=== PATIENT | male | born 1955 | race Caucasian/White ===

== ENCOUNTER 2018-08-22 17:17 | Inpatient (IN) | payer OTHER ==
[2018-08-22] MEDS ORDERED: SODIUM CHLORIDE 0.9% FLUSH 10 ML SOL IV PRN (17:35)
[2018-08-22] MEDS ORDERED: SODIUM CHLORIDE 0.9% 1000ML 1,000 ML IV ONE (17:35)
[2018-08-22 18:26] LABS: CALCIUM 8.4 mg/dl (8.5-10.1); CARBON DIOXIDE 28.4 mEq/L (21-32); CREATININE 0.5 mg/dl (0.80-1.30); POTASSIUM 4.3 mMol/L (3.5-5.1)
[2018-08-22 20:07] LABS: APPEARANCE,URINE Clear; BILIRUBIN,URINE NEGATIVE (NEGATIVE); COLOR,URINE Yellow; GLUCOSE, URINE (UA) NEGATIVE (NEGATIVE); KETONES,URINE TRACE (NEGATIVE); LEUKOCYTE ESTERASE ,URINE NEGATIVE (NEGATIVE); NITRATE,URINE NEGATIVE (NEGATIVE); OCCULT BLOOD,URINE TRACE INTACT (NEG-TRACE); UROBILINOGEN,URINE 0.2 (0.2-1.0 EU)
[2018-08-22 20:15] LABS: RBC,URINE NEGATIVE (0-3AV/HPF)
[2018-08-22 20:16] LABS: BACTERIA TRACE (< 1+); CRYSTALS NEGATIVE (0-3 AVE/HPF); EPITHELIAL CELLS NEGATIVE (SQUAMOUS); WBC,URINE 0-1 (0-5AV/HPF)
[2018-08-22] MEDS ORDERED: LISINOPRIL 5 MG TAB PO ONE (20:37)
[2018-08-22] MEDS: SODIUM CHLORIDE 0.9% FLUSH 10 ML SOL IV SCH (20:40)
[2018-08-22] MEDS ORDERED: NICOTINE 21 MG PATCH TD SCH (20:45)
[2018-08-23 04:12] VITALS: O2SAT 96
[2018-08-23] MEDS: SODIUM CHLORIDE 0.9% FLUSH 10 ML SOL IV SCH (04:13)
[2018-08-23 07:52] VITALS: BP 171/102; PULSE 78; RESP 16; TEMP 98
[2018-08-23 07:55] LABS: ALBUMIN 3.2 gm/dl (3.4-5.0); BILIRUBIN,TOTAL 1.7 mg/dl (0.2-1.0); CALCIUM 8.5 mg/dl (8.5-10.1); CARBON DIOXIDE 28.2 mEq/L (21-32); CREATININE 0.51 mg/dl (0.80-1.30); POTASSIUM 4.2 mMol/L (3.5-5.1); TOTAL PROTEIN 6.6 gm/dl (6.4-8.2)
== END 2018-08-23 10:50 | disposition home or self-care (01) | DRG 641 ==
LOC: ACUTE CARE 17:38
PROVIDERS: ADMIT Family Medicine; ATTEND Family Medicine
DX: E87.5 Hyperkalemia (principal); R79.89 Other specified abnormal findings of blood chemistry; Z72.89 Other problems related to lifestyle; I10 Essential (primary) hypertension
CPT/HCPCS: 36415; 80048; 80053; 81001; 82550; 93012; A9270-GY